=== PATIENT | female | born 1980 | race Two or more races ===

== ENCOUNTER 2024-07-17 08:08 | Outpatient (CLI) | payer OTHER | END 2024-07-17 08:17 | disposition home or self-care (01) | LOC: RAD 08:08 | PROVIDERS: ATTEND Physical Medicine & Rehabilitation Hospice and Palliative Medicine | DX: M41.9 Scoliosis, unspecified (principal); M25.521 Pain in right elbow; M77.11 Lateral epicondylitis, right elbow ==

== ENCOUNTER 2025-03-09 06:13 | Day surgery (SDC) | payer OTHER ==
[2025-03-08 13:57] VITALS: BP 118/56
[~2025-03-09] VITALS: Ht 165.1 cm; Wt 61.2 kg
[2025-03-09] MEDS ORDERED: CEFAZOLIN SODIUM 1,000 MG VIAL ONE (11:37)
[2025-03-09] MEDS ORDERED: MORPHINE SULFATE 4 MG/ML VIAL IV ONE (17:20)
== END 2025-03-09 18:45 | disposition home or self-care (01) ==
LOC: CIR.AMB 06:13
PROVIDERS: ATTEND Surgery
DX: D05.02 Lobular carcinoma in situ of left breast (principal); Z88.6 Allergy status to analgesic agent; R92.0 Mammographic microcalcification found on diagnostic imaging of breast

== ENCOUNTER 2025-04-06 09:14 | Emergency (ER) | payer OTHER ==
[~2025-04-06] VITALS: Ht 165.1 cm; Wt 61.2 kg
[2025-04-06] MEDS ORDERED: CIPRO500 MG (09:24)
[2025-04-06] MEDS ORDERED: DIPHENHYDRAMINE HCL 50 MG/ML VIAL 1ML IV ONE (09:45)
[2025-04-06 10:25] LABS: BASO % 0.3 % (0.1-1.2); EOS # 0.05 (0.04-0.54); EOS % 0.8 % (0.7-7.0); LYMPH # 1.16 (1.18-3.74); LYMPH % 18.0 % (19.3-53.1); MEAN PLATELET VOLUME 12.20 fl (9.4-12.4); MONO # 0.37 (0.24-0.82); MONO % 5.7 % (4.7-12.5); NEUT # 4.84 (1.56-6.13); NEUT % 75.0 % (34.0-71.1); RED CELL DISTRIBUTION WIDTH 12.8 % (11.6-14.4)
[2025-04-06 10:38] LABS: BUN CREA RATIO 8.0 (7.0-25.0); CREATININE SERUM 0.88 mg/dL (0.55-1.02); GFR 70.13; GLUCOSE FASTING 126.0 mg/dL (65-100); OSMOLALITY SERUM 283.0 MOSM/KG (275-295)
[2025-04-06 10:49] LABS: ERYTHROCYTE SEDIMENTATION RATE 13 mm/hr (0-20)
== END 2025-04-06 13:22 | disposition home or self-care (01) ==
LOC: ER 09:14
PROVIDERS: Emergency Medicine
DX: L53.9 Erythematous condition, unspecified (principal); Z88.6 Allergy status to analgesic agent